=== PATIENT | female | born 1945 | race Caucasian/White ===

== ENCOUNTER 2023-03-19 14:54 | Outpatient (OUT) | payer MEDICARE, OTHER, SELFPAY ==
--- NOTE | 2023-03-19 | VEIN_ITS ---
Patient: IVANIA RODGERS Exam Date: 03/19/2023 : 1945 Gender:F Ordering : DR CHRIS CISNEROS M.D. Admission #: [id number] Family : Order #: [id number] CLICK HERE TO VIEW EXAM RADIOLOGY REPORT PROCEDURE: [facility] EST [facility]D [facility] C[facility] - OFFICE VISIT FOLLOW UP COMPARISON: None. PROGRESS NOTES: The patient reports interval development of a prominent superficial varicosity within the distal posterior aspect of the left upper leg, with associated tenderness. Physical exam demonstrates a large, protruding varicosity extending down posterior upper leg and tenderness to palpation. Review of the ultrasound performed the same day demonstrates a dilated and incompetent coater vein within posterior distal left upper leg giving rise to the superficial varicosity. Several incompetent varicosities within left calf. The patient expressed a desire to proceed with treatment of the left thigh coater vein and the incompetent branch saphenous superficial varicosities. The patient was informed that treatment was a process and would require several procedures/sessions. VEIN/[facility] EST LMTD IMPRESSION: 1. 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 2. A few dilated and incompetent branch saphenous varicosities within the left calf. PLAN: 1. Endovenous laser ablation of left thigh coater vein. 2. Microfoam chemical ablation of incompetent branch saphenous varicosities. Nurse notes, history and physical were reviewed and confirmed, see attached forms. The nurse was present throughout the physical exam and consultation Dictated by: Marino Calixto M.D. on 03/20/2023 at 09:17 Approved by: Mraino Calixto M.D. on 03/20/2023 at 09:23
--- NOTE | 2023-03-19 | VEIN_ITS ---
Patient: IVANIA RODGERS Exam Date: 03/19/2023 : 1945 Gender:F Ordering : DR CHRSI CISNEROS M.D. Admission #: [id number] Family : Order #: [id number] CLICK HERE TO VIEW EXAM RADIOLOGY REPORT PROCEDURE: [facility] EXT VENOUS REFLUX LT LMTD COMPARISON: None. INDICATIONS: Phlebitis of superficial veins of lt lower extremity I80.02 TECHNIQUE: Duplex imaging of the lower extremity to assess the deep and superficial venous system for the presence of deep or superficial venous incompetence and to document the location and severity of disease. The study includes evaluation of the great saphenous vein (GSV), anterior accessory saphenous vein (AASV) and small saphenous vein (SSV). Patient scanned in reverse Trendelenburg and standing. FINDINGS: LEFT LOWER EXTREMITY: Saphenofemoral Junction Reflux: Yes8.7 mm 0.7 sec GSV: Diam (mm) Reflux/Time (sec) Proximal Thigh 6.2 Yes 1.5 Mid Thigh 4.9 Yes 0.4 Distal Thigh 4.8 No Prox Calf Mid Calf Saphenopopliteal Junction Reflux: SSV: Proximal Calf Mid Calf AASV: Not present Proximal Thigh Mid Thigh Distal Thigh Thrombi: SSV is thrombosed. Compressibility: Non compressible SSV. Flow: Tech Note: Large assembly detailer distal posterior thigh measures 6.1 mm with 3.4s reflux. Large varicosity arising from assembly detailer posterior thigh/popliteal fossa measures 6.2mm with 2.5s reflux. Proximal posterior calf varicose vein measures 7.3 mm with 2.2s reflux. Mid posterior calf varicose vein measures 3.8 mm with 3.8s reflux. Proximal medial calf varicose vein measures 3.6 mm with 1.3s reflux. CONCLUSION: 1. Abnormally dilated and incompetent assembly detailer vein within posterior distal left thigh giving rise to incompetent varicosities. 2. Several prominent, dilated incompetent varicosities within left calf. Dictated by: Marino Calixto M.D. on 03/20/2023 at 09:14 Approved by: Marino Calixto M.D. on 03/20/2023 at 09:17
== END 2023-03-19 14:55 | disposition home or self-care (01) ==
LOC: VC 14:54
PROVIDERS: PCP Radiology Diagnostic Radiology; Visit Provider Radiology Diagnostic Radiology
DX: I80.02 Phlebitis and thrombophlebitis of superficial vessels of left lower extremity (principal)
CPT/HCPCS: 93971; G0463

== ENCOUNTER 2023-04-03 07:49 | Outpatient (OUT) | payer MEDICARE, OTHER, SELFPAY ==
--- NOTE | 2023-04-03 07:51 | VEIN_ITS ---
[address] [address] Patient Name: IVANIA RODGERS MRN: [id number] date: 1945 Sex: F Assigned Patient Location: Current Patient Location: Accession/Order Number: [id number] Exam Date: 04/03/2023 07:55 Report Date: 04/03/2023 09:13 At the request of: CHRIS CISNEROS Procedure: VC Endovenous Perf Ablation LT EXAMINATION: VC Endovenous Perf Ablation LT COMPARISON: INDICATIONS: I83.813 Pain due to varicose veins of bilateral leg veins OPERATIVE REPORT: Diagnosis: Superficial venous reflux, incompetent perforating veins Procedure: Endovenous laser ablation of the left loom repairer(s) Procedure: The patient was positioned supine on the table and the leg was prepped and draped to allow for visualization during venous access. A sterile cover was draped over a 16 mhz ultrasound probe. Venous mapping was performed prior to the procedure noting location and size of vessel(s). Aluminum Molding Machine Operator vein 1: [Posterior left distal thigh. The diameter of the vein ranged from 6 mm's below the muscular fascia to5 mm's at the entry point. Using a 30 gauge needle the entry site was anesthetized with 1 cc of 1% buffered lidocaine. Access was gained percutaneously, with a 21-gauge needle, into the loom repairer vein under ultrasound guidance. The needle was advanced into the desired position and the pre-measured 400-micron fiber was then inserted into the needle and locked in place. The position of the fiber was imaged with ultrasound guidance. The fiber tip was visualized to be 30 mm from the deep vessel. An anesthetic solution of 5 cc 1% buffered lidocaine was delivered along the course of the vein under ultrasound guidance using a syringe. A final positioning check of the laser fiber tip was performed. The laser was activated by means of a foot-pedal and the fiber and needle were withdrawn together in accordance to the desired joules per treatment area/spot weld. 2 areas/spot welds were performed, and the total number of joules delivered was 84. The total time of energy delivery was 10 seconds. A duplex ultrasound revealed compressibility and flow of the deep system immediately after the procedure. Hemostasis of the access site was achieved and dressed. Aluminum Molding Machine Operator vein 2: Posterior lateral left distal thigh. The diameter of the vein ranged from 4 mm's below the muscular fascia to 4 mm's at the entry point. Using a 30 gauge needle the entry site was anesthetized with 2 cc of 1% buffered lidocaine. Access was gained percutaneously, with a 21-gauge needle, into the loom repairer vein under ultrasound guidance. The needle was advanced into the desired position and the pre-measured 400-micron fiber was then inserted into the needle and locked in place. The position of the fiber was imaged with ultrasound guidance. The fiber tip was visualized to be 40 mm from the deep vessel. An anesthetic solution of 5 cc 1% buffered lidocaine was delivered along the course of the vein under ultrasound guidance using a syringe. A final positioning check of the laser fiber tip was performed. The laser was activated by means of a foot-pedal and the fiber and needle were withdrawn together in accordance to the desired joules per treatment area/spot weld. 3 areas/spot welds were performed, and the total number of joules delivered was 137. The total time of energy delivery was 17 seconds. A duplex ultrasound revealed compressibility and flow of the deep system immediately after the procedure. Hemostasis of the access site was achieved and dressed. A 20-30 mm compression stocking over coban was placed on the treated leg. Post-Op instructions were given, and a follow-up appointment was made. CONCLUSION: 1. Technically successful endovenous laser ablation of left leg pain, loom repairer veins Electronically authenticated by: CHRIS CISNEROS Date: 04/03/2023 09:13
[2023-04-03] MEDS: LIDOCAINE HCL 20 ML, SODIUM BICARBONATE 2 MEQ INJ (08:51)
== END 2023-04-03 07:50 | disposition home or self-care (01) ==
LOC: VC 07:50
PROVIDERS: PCP Radiology Diagnostic Radiology; Visit Provider Radiology Diagnostic Radiology
DX: I83.813 Varicose veins of bilateral lower extremities with pain (principal)
CPT/HCPCS: 36478

== ENCOUNTER 2023-04-22 09:48 | Outpatient (OUT) | payer MEDICARE, OTHER, SELFPAY ==
--- NOTE | 2023-04-22 | VEIN_ITS ---
Patient: IVANIA RODGERS Exam Date: 04/22/2023 : 1945 Gender:F Ordering : DR CHRIS CISNEROS M.D. Admission #: [id number] Family : Order #: [id number] CLICK HERE TO VIEW EXAM RADIOLOGY REPORT PROCEDURE: [facility] EST LMTD VEIN CENTER - OFFICE VISIT FOLLOW UP [facility]. PROGRESS NOTES: The patient reports improvement in leg symptoms. There has been interval reduction in varicosities. The patient has followed our recommendations to walk 20-30 minutes once or twice per day since the procedure. Physical exam demonstrates decrease in varicosities of the leg. Persistent varicosities are identified along the left leg. Review of the ultrasound performed the same day demonstrates occlusive thrombus extending throughout the treated vein(s), see separate report, consistent with a successful ablation. No thrombus extending into or beyond the saphenofemoral junction. The patient expressed a desire to proceed with treatment of remaining incompetent varicosities. The patient was informed that treatment was a process and would require 1-2 procedures/sessions. VEIN/[facility] EST LMTD IMPRESSION: 1. Successful ablation of the left thigh header boss vein(s). 2. Persistent incompetent branch saphenous veins and mild lower extremity symptoms. PLAN: Microfoam chemical ablation of left leg incompetent branch saphenous varicosities. Nurse notes, history and physical were reviewed and confirmed, see attached forms. The nurse was present throughout the physical exam and consultation Dictated by: Marino Calixto M.D. on 04/22/2023 at 11:35 Approved by: Marino Calixto M.D. on 04/22/2023 at 11:37
--- NOTE | 2023-04-22 | VEIN_ITS ---
Patient: IVANIA RODGERS Exam Date: 04/22/2023 : 1945 Gender:F Ordering : DR CHRIS CISNEROS M.D. Admission #: [id number] Family : Order #: [id number] CLICK HERE TO VIEW EXAM RADIOLOGY REPORT PROCEDURE: VC EXT VENOUS LT LIMITED COMPARISON: None. INDICATIONS: Phlebitis of superficial veins of lt lower extremity I80.02 TECHNIQUE: Lower extremity munson scale and Duplex Doppler evaluation of the deep venous system from the inguinal ligament through the calf veins. FINDINGS: REGION: Left lower extremity. THROMBI: Negative for DVT. Heat induced thrombus visualized dist/posterior thigh. COMPRESSIBILITY: Non-compressible segments. FLOW: Areas of no flow. OTHER: CONCLUSION: 1. Successful post ablation occlusion of treated left thigh elementary school librarian veins. Dictated by: Marino Calixto M.D. on 04/22/2023 at 11:33 Approved by: Marino Calixto M.D. on 04/22/2023 at 11:35
== END 2023-04-22 09:49 | disposition home or self-care (01) ==
LOC: VC 09:49
PROVIDERS: PCP Radiology Diagnostic Radiology; Visit Provider Radiology Diagnostic Radiology
DX: I80.02 Phlebitis and thrombophlebitis of superficial vessels of left lower extremity (principal)
CPT/HCPCS: 93971; G0463

== ENCOUNTER 2023-05-06 10:51 | Outpatient (OUT) | payer MEDICARE, OTHER, SELFPAY ==
--- NOTE | 2023-05-06 | VEIN_ITS ---
[address] [address] Patient Name: IVANIA RODGERS MRN: [id number] date: 1945 Sex: F Assigned Patient Location: Current Patient Location: Accession/Order Number: [id number] Exam Date: 05/06/2023 11:00 Report Date: 05/06/2023 12:07 At the request of: CHRIS CISNEROS Procedure: VC INJ Foam Sclerosant WUS SPUD DRILLER PROCEDURE: VC INJ Foam Sclerosant WUS SPUD DRILLER HISTORY: Pain due to varicose veins of bilateral legs I83.813 Pre-operative Diagnosis: CEAP class C3 venous insufficiency with pain, tenderness, edema and incompetent branch saphenous vein(s), chronic venous insufficiency left leg secondary to venous incompetence Post-operative Diagnosis: CEAP class C3 venous insufficiency with pain, tenderness, edema and incompetent branch saphenous vein(s), chronic venous insufficiency left leg secondary to venous incompetence Procedure Performed: 1. Ultrasound-guided microfoam chemical ablation with Varithenaregistered 2. Intraoperative ultrasound guidance Physician: Marino Calixto M.D. Anesthesia: None Indications for Procedure: 77 year old female. Symptoms including lower extremity pain, swelling, dilated bulging veins, cramping for many years despite conservative medical therapy including medical compression stockings, exercise and analgesics. Prior procedures include endovenous laser ablation. Multiple incompetent varicosities of the left leg. Duplex scan showed reflux and enlarged diameters up to 4 mm. The patient underwent informed consent including management options where the complications of infection, bleeding, pain, and skin injury were discussed. Particular attention was spent discussing thrombus extension and deep vein thrombosis as well as the possibility of pulmonary embolus and treatment with oral or injectable blood thinners. Procedure: The patient walked to the procedure room. All applicable staff donned appropriate apparel. A procedure timeout was performed to confirm correct patient, correct extremity, correct procedure, and correct room set-up including presence of all applicable supplies, devices, and drugs. A duplex ultrasound, performed by myself confirmed the location and incompetence of branch saphenous varicosities and their course was marked on the skin together with the dilated tributaries. The extent of treatment of the vein and the associated varicosities was determined through ultrasound mapping. The skin was prepped and then punctured with a butterfly needle and advanced under ultrasound guidance. The Varithenaregistered canister was activated and the canister was primed and purged as required in the instructions for use. Varithenaregistered was drawn into a sterile syringe. Varithenaregistered was slowly administered at 0.5-1.0 cc/second with close observation by ultrasound of its course in the vessels. Total volume utilized was: 9 mL (5 mL into a 4 mm varicosity of the posterior mid calf; 4 mL into a 3.5 mm varicosity of the mid posterior thigh). Following administration of Varithenaregistered the leg was elevated and the patient was asked to repeatedly dorsiflex the ankle to limit flow of Varithenaregistered into perforating veins. Once appropriate spasm had been confirmed in the treated veins, the vascular catheter was removed from the leg and light pressure was applied over the puncture site for hemostasis. The common femoral and deep superficial veins were then evaluated for flow and compressibility prior to dressing placement. The lower extremity was kept elevated at 45 degrees above the horizontal and cording material was applied over the saphenous segments and tributaries to allow for eccentric compression over the target vessels including the targeted saphenous vein(s). A multilayer dressing was applied consisting of foam pads, coban and thigh-high 20-30 mm Hg compression elastic support hose were placed on the patient. The leg was lowered only after compression had been applied and the patient was immediately ambulatory. The patient ambulated 10 minutes under supervision and was without apparent concerns at time of release. Post-care instructions include advising patient to keep post-treatment bandages in place and dry for 48 hours, avoid extended periods of inactivity, avoid heavy exercise for one week, wear compression stockings on the treated leg continuously for two weeks, to walk daily for 10 minutes over the next month. The patient was instructed to take an anti-inflammatory medicine as needed and to follow up for color duplex scan of the Saphenous veins, the treated branch saphenous varicosities, the adjacent deep veins, and additional treatment within 7 days. PERSONNEL: Alysha Betancourt RN Electronically authenticated by: MARINO CALIXTO Date: 05/06/2023 12:07
== END 2023-05-06 10:52 | disposition home or self-care (01) ==
LOC: VC 10:51
PROVIDERS: PCP Radiology Diagnostic Radiology; Visit Provider Radiology Diagnostic Radiology
DX: I83.813 Varicose veins of bilateral lower extremities with pain (principal)
CPT/HCPCS: 36466

== ENCOUNTER 2023-05-15 09:48 | Outpatient (OUT) | payer MEDICARE, OTHER, SELFPAY ==
--- NOTE | 2023-05-15 | VEIN_ITS ---
Patient: IVANIA RODGERS Exam Date: 05/15/2023 : 1945 Gender:F Ordering : DR JAYRO CISNEROS M.D. Admission #: [id number] Family : Order #: [id number] CLICK HERE TO VIEW EXAM RADIOLOGY REPORT PROCEDURE: [facility] EST L[facility]D VEIN CENTER - OFFICE VISIT FOLLOW UP COMPARISON: FACILITY EST LMTD, 04/22/2023. FACILITY EST LMTD, 03/19/2023. PROGRESS NOTES: The patient reports no significant problems following micro foam chemical ablation of incompetent left leg varicose veins. The patient did not require oral analgesics. The patient has worn her compression stockings. Patient reports significant improvement in her initial presenting symptoms. Physical exam demonstrates multiple thrombosed varicose veins. Some mild hemosiderin staining. No areas of erythema or warmth to suggest cellulitis or thrombophlebitis. No active ulceration.. Review of the ultrasound performed the same day demonstrates occlusive thrombus extending throughout the treated left leg varicose veins. No residual dilated incompetent varicose veins are observed. At this time the patient's treatments are completed. I recommended a 12-24 month follow-up to evaluate progression of her venous disease. VEIN/ Facility EST LMTD IMPRESSION: 1. Successful ablation of treated incompetent left leg varicose veins 2. Treatment is complete. PLAN: Follow-up in 12-24 months Nurse notes, history and physical were reviewed and confirmed, see attached forms. The nurse was present throughout the physical exam and consultation Dictated by: Jayro Cisneros MD on 05/15/2023 at 11:16 Approved by: Jayro Cisneros MD on 05/15/2023 at 11:37
--- NOTE | 2023-05-15 | VEIN_ITS ---
Patient: IVANIA RODGERS Exam Date: 05/15/2023 : 1945 Gender:F Ordering : DR JAYRO CISNEROS M.D. Admission #: [id number] Family : Order #: [id number] CLICK HERE TO VIEW EXAM RADIOLOGY REPORT PROCEDURE: VC EXT VENOUS LT LIMITED COMPARISON: VC EXT VENOUS LT LIMITED, 04/22/2023. INDICATIONS: Phlebitis of superficial veins of lt lower extremity I80.02 TECHNIQUE: Lower extremity munson scale and Duplex Doppler evaluation of the deep venous system from the inguinal ligament through the calf veins. FINDINGS: REGION: Left lower extremity. THROMBI: Negative for DVT. Varithena induced thrombus visualized at mid posterior thigh and mid posterior calf. COMPRESSIBILITY: Non-compressible segments corresponding. FLOW: Absent flow corresponding to thrombus OTHER: No varicose veins remain. CONCLUSION: Post ablation occlusion of treated left leg incompetent varicose veins. No residual incompetent varicose veins are observed Dictated by: Jayro Cisneros MD on 05/15/2023 at 10:13 Approved by: Jayro Cisneros MD on 05/15/2023 at 10:13
== END 2023-05-15 09:49 | disposition home or self-care (01) ==
LOC: VC 09:49
PROVIDERS: PCP Radiology Diagnostic Radiology; Visit Provider Radiology Diagnostic Radiology
DX: I80.02 Phlebitis and thrombophlebitis of superficial vessels of left lower extremity (principal)
CPT/HCPCS: 93971; G0463